=== PATIENT | male | born 1985 | race Caucasian/White ===

== ENCOUNTER → 2021-09-05 | Outpatient (CLI) | payer OTHER ==
[~2021-09-05] MED LIST: ANAPROX DS550 MG PO; CATAFLAM50 MG PO; DAYPRO600 M1 PO; FLEXERIL10 MG PO; HYDROCODONE BIT1 T11 PO; IBUPROFEN 30 M800 MG PO; MEDROL DOSEPAK4 MG PO; MOTRIN800 MG PO; PREDNICOT20 MG PO; ROBAXIN750 MG PO; ULTRAM50 MG PO; VOLTAREN75 MG PO; ZYRTEC10 M1 PO
== END | disposition home or self-care (01) ==
LOC: COVID19 16:43
PROVIDERS: ATTEND Internal Medicine
DX: U07.1 COVID-19 (principal)

== ENCOUNTER 2024-05-19 17:34 | Emergency (ER) | payer OTHER ==
[~2024-05-19] VITALS: Ht 177.8 cm; Wt 113.4 kg
[2024-05-19] MEDS ORDERED: Tdap Vaccine 0.5 ML SYR (Adult Vaccine) IM ONE (18:05)
[2024-05-19] MEDS ORDERED: ceFAZolin sodium 1 GM in SYRINGE INFUSION 10 ML IV ONE (18:05)
[2024-05-19] MEDS ORDERED: ceFAZolin sodium/sodium chlor 10 ML IV ONE (18:20)
[2024-05-19] MEDS ORDERED: CEPHALEXIN500 M1 PO (19:50)
[2024-05-19] MEDS ORDERED: VIBRAMYCIN100 MG PO (19:50)
[2024-05-19] MEDS ORDERED: HYDROCODONE-AC1 EAC1 PO (19:50)
== END 2024-05-19 19:58 | disposition home or self-care (01) ==
LOC: ED 17:34
DX: S61.432A Puncture wound without foreign body of left hand, initial encounter (principal); F17.290 Nicotine dependence, other tobacco product, uncomplicated; Z88.0 Allergy status to penicillin; W34.00XA Accidental discharge from unspecified firearms or gun, initial encounter; Y93.89 Activity, other specified; Y92.009 Unspecified place in unspecified non-institutional (private) residence as the place of occurrence of the external cause; Y99.8 Other external cause status

== ENCOUNTER → 2024-05-20 | Outpatient (CLI) | payer OTHER ==
[~2024-05-20] MED LIST changes: +CEPHALEXIN500 M1 PO; +HYDROCODONE-AC1 EAC1 PO; +VIBRAMYCIN100 MG PO
== END | disposition home or self-care (01) ==
LOC: WOUNDCARE 11:38
PROVIDERS: ATTEND Nurse Practitioner Family
DX: S61.412A Laceration without foreign body of left hand, initial encounter (principal); S61.432A Puncture wound without foreign body of left hand, initial encounter; Z79.899 Other long term (current) drug therapy; W32.0XXA Accidental handgun discharge, initial encounter; Y93.89 Activity, other specified; Y92.89 Other specified places as the place of occurrence of the external cause; Y99.8 Other external cause status

== ENCOUNTER → 2024-05-27 | Outpatient (CLI) | payer OTHER | END | disposition home or self-care (01) | LOC: WOUNDCARE 03:31 | PROVIDERS: ATTEND Nurse Practitioner Family | DX: S61.412D Laceration without foreign body of left hand, subsequent encounter (principal); S61.432D Puncture wound without foreign body of left hand, subsequent encounter; Z79.899 Other long term (current) drug therapy; W32.0XXD Accidental handgun discharge, subsequent encounter ==

== ENCOUNTER → 2024-06-03 | Outpatient (CLI) | payer OTHER | END | disposition home or self-care (01) | LOC: WOUNDCARE 02:03 | PROVIDERS: ATTEND Nurse Practitioner Family | DX: S61.412D Laceration without foreign body of left hand, subsequent encounter (principal); S61.432D Puncture wound without foreign body of left hand, subsequent encounter; Z79.899 Other long term (current) drug therapy; W32.0XXD Accidental handgun discharge, subsequent encounter ==

== ENCOUNTER → 2024-06-17 | Outpatient (CLI) | payer OTHER | END | disposition home or self-care (01) | LOC: WOUNDCARE 02:49 | PROVIDERS: ATTEND Nurse Practitioner Family | DX: S61.412D Laceration without foreign body of left hand, subsequent encounter (principal); S61.432D Puncture wound without foreign body of left hand, subsequent encounter; Z79.899 Other long term (current) drug therapy; W32.0XXD Accidental handgun discharge, subsequent encounter ==

== ENCOUNTER → 2024-08-18 | Outpatient (CLI) | payer OTHER | END | disposition home or self-care (01) | LOC: RAD 10:48 | PROVIDERS: ATTEND Family Medicine | DX: S52.615A Nondisplaced fracture of left ulna styloid process, initial encounter for closed fracture (principal); S62.115A Nondisplaced fracture of triquetrum [cuneiform] bone, left wrist, initial encounter for closed fracture; M25.432 Effusion, left wrist; X58.XXXA Exposure to other specified factors, initial encounter; Y93.89 Activity, other specified; Y92.89 Other specified places as the place of occurrence of the external cause; Y99.8 Other external cause status ==